=== PATIENT | female | born 1990 | race Caucasian/White ===

== ENCOUNTER 2016-07-22 10:03 | Emergency (ER) | payer MEDICAID ==
[~2016-07-22] VITALS: Ht 157.5 cm; Wt 60.5 kg
[2016-07-22] MEDS ORDERED: BENZONATATE 100 MG CAPSULE PO ONE (11:45)
[2016-07-22 12:05] LABS: INFLUENZA TYPE B NEGATIVE FOR TYPE B (NEGATIVE)
[2016-07-22] MEDS ORDERED: MAALOX/LIDOCAINE/NYSTATIN SUSP 5 ML ORAL.SYG PO ONE (14:00)
[2016-07-22 15:09] VITALS: BP 125/69
== END 2016-07-22 15:14 | disposition home or self-care (01) ==
LOC: EMS 10:05
DX: J20.9 Acute bronchitis, unspecified (principal); J04.0 Acute laryngitis
CPT/HCPCS: 71020; 81025; 87430; 87804; 99285